=== PATIENT | male | born 1960 | race Caucasian/White ===

== ENCOUNTER 2019-04-20 18:32 | Inpatient (IN) | payer MEDICAID ==
[~2019-04-20] VITALS: Ht 170.2 cm; Wt 87.1 kg
[~2019-04-20 18:32] MED LIST: ALPR2TAB2; AMLO10TA4 PO; ASPI-1158 PO; BENZ0.5T43 PO; DIPH25CA83; HALO10TA13 PO; HYDR1POW18; HYDR1TAB4; PARO10TA87; PARO40TA PO; RISP4; SERT50TA
[2019-04-21] MEDS ORDERED: MORPHINE SULFATE 4 MG/ML CPJ (NOT FOR IM USE) IV STA (04:06)
[2019-04-21] MEDS ORDERED: ONDANSETRON HCL 4MG/2ML INJ IV STA (04:06)
[2019-04-21] MEDS ORDERED: SODIUM CHLORIDE 0.9% 1,000 ML IV ONE ×2 (04:06→11:20)
[2019-04-21 04:50] LABS: CHLORIDE 105 mEq/L (98-107)
[2019-04-21 04:51] LABS: BASOPHILS % 0.7 % (0.0-2.0); HEMATOCRIT. 46.2 % (42.0-52.0); HEMOGLOBIN. 15.9 g/dL (14.0-18.0); LYMPHOCYTES % 15.4 % (20.0-50.0); MEAN PLATELET VOLUME 7.7 fl (7.4-10.4); MONOCYTES % 14.8 % (2.0-8.0); NEUTROPHILS % 66.1 % (40.0-76.0); PLATELET 213 x1000/uL (130-400); RED CELL DISTRIBUTION WIDTH 13.9 % (11.6-14.6)
[2019-04-21 04:53] LABS: PARTIAL THROMBOPLASTIN TIME 29.2 sec (23.4-31.0); PROTHROMBIN TIME 10.8 sec (9.6-11.0)
[2019-04-21 05:32] LABS: CLARITY URINE CLEAR (CLEAR); COLOR URINE YELLOW (YELLOW); KETONES URINE NEGATIVE (NEGATIVE); LEUKOCYTE ESTERASE URINE NEGATIVE (NEGATIVE); NITRITE URINE NEGATIVE (NEGATIVE); OCCULT BLOOD URINE NEGATIVE (NEGATIVE); PH URINE 7.5 (4.5-8.0); PROTEIN URINE NEGATIVE (NEGATIVE); SPECIFIC GRAVITY URINE 1.008 (1.005-1.030)
[2019-04-21] MEDS ORDERED: IOHEXOL-300 100 ML BOTTLE ONE (06:22)
[2019-04-21] MEDS ORDERED: PIPERACILLIN/TAZ 3.375G PREMIX 50 ML IV ONE (06:30)
[2019-04-21] MEDS ORDERED: SKIN ADHESIVE 0.7 GM EA TOP ONE (07:40)
[2019-04-21] MEDS ORDERED: BUPIVACAINE HCL 0.5% (5MG/ML) 50ML ONE (07:41)
[2019-04-21] MEDS ORDERED: MORPHINE SULFATE 4 MG/ML CPJ (NOT FOR IM USE) IV PRN (08:15)
[2019-04-21] MEDS ORDERED: ACETAMINOPHEN 325MG TABLET PO PRN (08:15)
[2019-04-21] MEDS ORDERED: HYDROCODONE/ACETAMINOPHEN 5/325MG TABLET PO PRN (08:15)
[2019-04-21] MEDS ORDERED: ONDANSETRON HCL 4MG/2ML INJ IV PRN ×2 (08:15→09:30)
[2019-04-21] MEDS ORDERED: ROCURONIUM BROMIDE 10MG/ML VIAL 5ML IV ONE (08:17)
[2019-04-21] MEDS ORDERED: LIDOCAINE HCL/PF 1% 10 MG/ML 5ML VIAL ONE (08:17)
[2019-04-21] MEDS ORDERED: SODIUM CHLORIDE 0.9% 10ML VIAL ONE (08:17)
[2019-04-21] MEDS ORDERED: CEFAZOLIN SODIUM 1000MG/VIAL ONE (08:17)
[2019-04-21] MEDS ORDERED: NEOSTIGMINE METHYLSULFATE 1MG/ML 10 ML VIAL ONE (08:17)
[2019-04-21] MEDS ORDERED: GLYCOPYRROLATE 0.2 MG/ML 2ML VIAL ONE (08:17)
[2019-04-21] MEDS ORDERED: SUCCINYLCHOLINE CHLORIDE 200MG/10ML IV ONE (08:17)
[2019-04-21] MEDS ORDERED: ONDANSETRON HCL 4MG/2ML INJ ONE (08:17)
[2019-04-21] MEDS ORDERED: MIDAZOLAM HCL 2 MG/2 ML VIAL ONE (08:17)
[2019-04-21] MEDS ORDERED: METOCLOPRAMIDE HCL 10MG/2ML VIAL ONE (08:17)
[2019-04-21] MEDS ORDERED: FENTANYL CITRATE/PF 50MCG/ML 2ML VIAL ONE (08:17)
[2019-04-21] MEDS ORDERED: EPHEDRINE SULFATE 50MG/ML VIAL ONE (08:17)
[2019-04-21] MEDS ORDERED: PROPOFOL 200MG/20ML VIAL IV ONE (08:17)
[2019-04-21] MEDS ORDERED: PHENYLEPHRINE HCL 10 MG/ML 1ML (IV VIAL) IV ONE (08:17)
[2019-04-21] MEDS ORDERED: DEXT 5%/0.45% NACL KCL 20MEQ/L 1,000 ML IV SCH (08:30)
[2019-04-21] MEDS ORDERED: HYDROMORPHONE HCL/PF 2MG/ML CPJ IV PRN (09:30)
[2019-04-21 11:10] VITALS: BP 110/69
[2019-04-21 12:00] VITALS: BP 102/65
[2019-04-21 16:00] VITALS: BP 90/56
[2019-04-21] MEDS ORDERED: SODIUM CHLORIDE 0.9% 500 ML IV ONE (17:30)
[2019-04-21] MEDS: HYDROCODONE/ACETAMINOPHEN 5/325MG TABLET PO PRN (17:37)
[2019-04-21 20:00] VITALS: BP 87/54
[2019-04-21] MEDS: DEXT 5%/0.45% NACL KCL 20MEQ/L 1,000 ML IV SCH (21:23)
[2019-04-22] VITALS: BP 91/60
[2019-04-22 04:00] VITALS: BP 95/67
[2019-04-22 08:00] VITALS: BP 125/78
[2019-04-22 08:55] LABS: HEMATOCRIT. 40.8 % (42.0-52.0); HEMOGLOBIN. 14.1 g/dL (14.0-18.0); MEAN CORPUSCULAR VOLUME 84.3 fL (80.0-94.0); PLATELET 196 x1000/uL (130-400); RED BLOOD CELL COUNT 4.85 mill/uL (4.7-6.1); RED CELL DISTRIBUTION WIDTH 14.2 % (11.6-14.6)
[2019-04-22 09:14] LABS: CHLORIDE 108 mEq/L (98-107)
[2019-04-22] MEDS: DEXT 5%/0.45% NACL KCL 20MEQ/L 1,000 ML IV SCH (09:35)
[2019-04-22] MEDS ORDERED: KCL 20MEQ/100ML PREMIX 100 ML IV SCH (10:30)
[2019-04-22] MEDS: HYDROCODONE/ACETAMINOPHEN 5/325MG TABLET PO PRN (10:47)
[2019-04-22 12:00] VITALS: BP 119/81
[2019-04-22 14:23] LABS: PLATELET ESTIMATE NORMAL
[2019-04-22 16:00] VITALS: BP 116/84
[2019-04-22 20:00] VITALS: BP 129/87
[2019-04-23] VITALS: BP 125/83
[2019-04-23 04:00] VITALS: BP 126/83
[2019-04-23 07:15] LABS: HEMATOCRIT. 41.7 % (42.0-52.0); HEMOGLOBIN. 14.5 g/dL (14.0-18.0); MEAN CORPUSCULAR HEMOGLOBIN 28.9 pg (28.0-32.0); MEAN CORPUSCULAR VOLUME 83.3 fL (80.0-94.0); MEAN PLATELET VOLUME 8.1 fl (7.4-10.4); PLATELET 214 x1000/uL (130-400); RED CELL DISTRIBUTION WIDTH 13.7 % (11.6-14.6)
[2019-04-23 07:35] LABS: CHLORIDE 107 mEq/L (98-107)
[2019-04-23 08:00] VITALS: BP 119/70
[2019-04-23 12:00] VITALS: BP 116/74
[2019-04-23 12:29] VITALS: BP 119/70
[2019-04-23 14:27] LABS: PLATELET ESTIMATE NORMAL
== END 2019-04-23 15:36 | disposition home or self-care (01) | DRG 234 ==
LOC: ER 18:32 → 8WST 04-21 06:41 → EDBEDREQTM 04-21 06:50 → ENRESERV 04-21 08:02
PROVIDERS: ADMIT Internal Medicine; ATTEND Internal Medicine
PROC: 0DTJ4ZZ Resection of Appendix, Percutaneous Endoscopic Approach (ICD-10-PCS; principal; 2019-04-21)
DX: K35.80 Unspecified acute appendicitis (principal); J96.10 Chronic respiratory failure, unspecified whether with hypoxia or hypercapnia; R18.8 Other ascites; F20.9 Schizophrenia, unspecified; F32.9 Major depressive disorder, single episode, unspecified; I10 Essential (primary) hypertension; Z99.81 Dependence on supplemental oxygen; K40.90 Unilateral inguinal hernia, without obstruction or gangrene, not specified as recurrent; Z79.899 Other long term (current) drug therapy; Z79.82 Long term (current) use of aspirin
CPT/HCPCS: 36415; 71045; 74177; 80048; 84484; 86850; 86900; 88304; 93005; 96361; 96374; 96375; 99285; J0330; J0690; J2250; J2270; J2370; J2405; J2543; J2704; J2710; J2765; J3010; J3480; J3490; J7030; J7040; J7050; Q9967